=== PATIENT | female | born 1980 | race Caucasian/White ===

== ENCOUNTER 2018-03-07 20:04 | Emergency (ER) | payer MEDICAID ==
[~2018-03-07] VITALS: Ht 165.1 cm; Wt 76.3 kg
[2018-03-07 20:07] VITALS: BP 117/72
[2018-03-07] MEDS ORDERED: HYDROcodone/APAP 5/325 TABLET PO ONE (20:40)
[2018-03-07] MEDS ORDERED: HYDROcodone/APAP 5/325 TABLET ONE (20:47)
[2018-03-07] MEDS ORDERED: DIPH,PERTUSS(ACELL),TET VAC/PF 0.5 ML IM-VACC ONE ×2 (20:54→21:00)
[2018-03-07] MEDS ORDERED: LIDOCAINE-MPF 2% ,5ML ONE ×2 (20:56→21:00)
[2018-03-07] MEDS ORDERED: BACITRACIN ZINC OINT 500U/GM, 0.9 GM ONE (22:09)
== END 2018-03-07 22:22 | disposition home or self-care (01) ==
LOC: ED 22:10
DX: L60.0 Ingrowing nail (principal)
CPT/HCPCS: 11730; 90471; 90715; 99283